=== PATIENT | female | born 1965 | race Caucasian/White ===

== ENCOUNTER 2020-10-25 09:51 | Outpatient (CLI) | payer OTHER, SELFPAY ==
--- NOTE | 2020-10-25 10:08 | XR_ITS ---
WS: [id number] CERVICAL SPINE TECHNIQUE: 3 views of the cervical spine CLINICAL INFORMATION: NECK PAIN COMPARISON: None. FINDINGS: Mild cervical curve convex left. Moderate spondylitic changes. Disc space narrowing throughout the ce rvical spine worse at C3-C4 C4-C5 and C5-C6. Normal prevertebral soft tissues. Normal C1-2 articulati on. Slight retrolisthesis C3 on C4 and C4 on C5. Normal dens. TECHNIQUE: 3 views of the lumbar spine CLINICAL INFORMATION: Back pain COMPARISON: None. FINDINGS: Osteopenia. Minimal lumbar curve. Grade 1 anterolisthesis L4 on L5 measuring 3 mm. Grade 1 anterolist hesis L5 on S1 measuring 2 mm. Moderate facet arthropathy L4-L5 and L5-S1. Disc space narrowing worse L4-L5 and L5-S1. Aortic calcification. No acute compression fractures. XR/XR lumbar spine 2-3V* [id number] IMPRESSION: 1. Moderate spondylitic changes cervical spine. 2. Disc space narrowing worse at C3-C4 C4-C5 and C5-C6. 3. Slight retrolisthesis C3 on C4 and C4 on C5. LUMBAR SPINE: IMPRESSION: 1. Grade 1 anterolisthesis L4 on L5 measuring 3 mm. Grade 1 anterolisthesis L5 on S1 measuring 2 mm. 2. Disc space narrowing worse L4-L5 and L5-S1. Moderate facet arthropathy L4-L5 and L5-S1.
--- NOTE | 2020-10-25 10:08 | XR_ITS ---
WS: [id number] CERVICAL SPINE TECHNIQUE: 3 views of the cervical spine CLINICAL INFORMATION: NECK PAIN COMPARISON: None. FINDINGS: Mild cervical curve convex left. Moderate spondylitic changes. Disc space narrowing throughout the ce rvical spine worse at C3-C4 C4-C5 and C5-C6. Normal prevertebral soft tissues. Normal C1-2 articulati on. Slight retrolisthesis C3 on C4 and C4 on C5. Normal dens. TECHNIQUE: 3 views of the lumbar spine CLINICAL INFORMATION: Back pain COMPARISON: None. FINDINGS: Osteopenia. Minimal lumbar curve. Grade 1 anterolisthesis L4 on L5 measuring 3 mm. Grade 1 anterolist hesis L5 on S1 measuring 2 mm. Moderate facet arthropathy L4-L5 and L5-S1. Disc space narrowing worse L4-L5 and L5-S1. Aortic calcification. No acute compression fractures. XR/XR cervical spine 3V* [id number] IMPRESSION: 1. Moderate spondylitic changes cervical spine. 2. Disc space narrowing worse at C3-C4 C4-C5 and C5-C6. 3. Slight retrolisthesis C3 on C4 and C4 on C5. LUMBAR SPINE: IMPRESSION: 1. Grade 1 anterolisthesis L4 on L5 measuring 3 mm. Grade 1 anterolisthesis L5 on S1 measuring 2 mm. 2. Disc space narrowing worse L4-L5 and L5-S1. Moderate facet arthropathy L4-L5 and L5-S1.
== END 2020-10-25 09:52 | disposition home or self-care (01) ==
LOC: RAD 09:54
PROVIDERS: PCP General Practice; Visit Provider Dermatology
DX: M54.2 Cervicalgia (principal); M54.5 Low back pain; M47.816 Spondylosis without myelopathy or radiculopathy, lumbar region; M47.817 Spondylosis without myelopathy or radiculopathy, lumbosacral region
CPT/HCPCS: 72040; 72100

== ENCOUNTER → 2021-05-09 11:10 | Outpatient (BNVA) | payer MEDICAID, SELFPAY | PROVIDERS: PCP General Practice; Visit Provider Nurse Practitioner | DX: E11.65 Type 2 diabetes mellitus with hyperglycemia (principal); Z79.4 Long term (current) use of insulin | CPT/HCPCS: 80053; 80061; 83036; 84443; 85025 ==

== ENCOUNTER → 2021-08-07 11:20 | Outpatient (BNVA) | payer MEDICAID, SELFPAY | PROVIDERS: PCP General Practice; Visit Provider Nurse Practitioner | DX: E11.65 Type 2 diabetes mellitus with hyperglycemia (principal); Z79.4 Long term (current) use of insulin; F41.9 Anxiety disorder, unspecified; F32.A Depression, unspecified; I10 Essential (primary) hypertension | CPT/HCPCS: 80053; 80061; 81000; 83036 ==

== ENCOUNTER 2021-10-13 19:47 | Emergency (ER) | payer MEDICAID, SELFPAY ==
[2021-10-13 20:28] VITALS: BP 182/97; PULSE 95; RESP 18; TEMP 37.3; O2SAT 97; BMI 29.2
--- NOTE | 2021-10-13 22:04 | ECG_ITS ---
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 Measurements Intervals [place] Rate: 87 P: 28 AK: 142 QRS: 3 QRSD: 129 T: 35 QT: 412 QTc: 498 Interpretive Statements SINUS RHYTHM RIGHT BUNDLE BRANCH BLOCK [120+ ms QRS DURATION, UPRIGHT V1, 40+ ms S IN I/aVL/V4/V5/V6] MODERATE VOLTAGE CRITERIA FOR LVH, CONSIDER NORMAL VARIANT [MEETS CRITERIA IN ONE OF: R(aVL), S(V1), R(V5), R(V5/V6)+S(V1)] INTERPRETATION BASED ON A DEFAULT AGE OF 40 YEARS Compared to ECG 02/09/2019 08:36:44 Short AK interval no longer present Electronically Signed On 10-14-2021 22:01:15 CDT by Alea Verduzco M.D. [id number]
[2021-10-13 22:23] VITALS: BP 153/89; PULSE 85; RESP 23; TEMP 37.5; O2SAT 90
--- NOTE | 2021-10-13 22:24 | XRR_ITS ---
PROCEDURE INFORMATION: Exam: XR Chest Exam date and time: 10/13/2021 10:35 PM Age: 56 years old Clinical indication: Patient HX: C/O HTN and MURRAY; Additional info: Fever TECHNIQUE: Imaging protocol: XR of the chest. Views: 1 view. COMPARISON: CR Chest 2 views* [id number] 02/09/2019 8:54 AM FINDINGS: Lungs: The lung bases are suboptimally assessed due to technique however the upper lungs are clear of focal consolidation. Calcified granuloma left lung base. Pleural spaces: Unremarkable. No pleural effusion. No pneumothorax. Heart/Mediastinum: Cardiac silhouette appears somewhat magnified by technique but is probably normal in size. No obvious vascular congestion. Bones/joints: No acute osseous findings. Other findings: Two frontal views submitted. XR/XR chest 1V portable [id number] IMPRESSION: No obvious acute consolidation. Suboptimal lung base assessment. Followup including lateral view may be obtained if clinically indicated.
--- NOTE | 2021-10-13 22:24 | CTR_ITS ---
PROCEDURE INFORMATION: Exam: CT Head Without Contrast Exam date and time: 10/13/2021 10:43 PM Age: 56 years old Clinical indication: Pain; Headache not specified; Patient HX: C/O HTN and MURRAY; Additional info: New headacche TECHNIQUE: Imaging protocol: Computed tomography of the head without contrast. Radiation optimization: All CT scans at this facility use at least one of these dose optimization techniques: automated exposure control; mA and/or kV adjustment per patient size (includes targeted exams where dose is matched to clinical indication); or iterative reconstruction. COMPARISON: CT head wo con* [id number] 02/09/2019 8:46 AM RADIATION DOSE METRICS: Total DLP (mGy-cm): 786.95 FINDINGS: Brain: Moderate-severe diffuse hypodense changes are noted in the bilateral periventricular regions, which may be related to chronic microvascular ischemic disease or other nonspecific white matter/demyelinating disease. There is mild brain parenchymal atrophy. No acute intracranial hemorrhage, mass effect or midline shift. Cerebral ventricles: No pathologic ventricular dilatation. Paranasal sinuses: Visualized sinuses are unremarkable. No fluid levels. Mastoid air cells: Visualized mastoid air cells are well aerated. Bones/joints: Unremarkable. No acute fracture. Soft tissues: Unremarkable. CT/CT head wo con* [id number] IMPRESSION: 1. Significant diffuse chronic white matter abnormalities which appears stable. Clinical correlation is needed. Neurologic consultation/MRI correlation should be considered. 2. No acute intracranial findings otherwise..
--- NOTE | 2021-10-13 22:26 | W.ED.GENADLT ---
Documented by User: Chun Scherer DO 10/13/21 23:11 HPI - General Adult General: Chief complaint: Headache Stated complaint: high blood pressure head ache Time Seen by Provider: 10/13/21 22:03 Source: patient Mode of arrival: ambulatory Limitations: no limitations History of Present Illness: This patient presents to our emergency department because she is concerned about she might have elevation in her blood pressure and associated headache. She states she is also had generalized body aches malaise and decreased appetite and subjective fevers. She was initially concerned because she thought that her blood pressure elevation may be the culprit however he has any other associated symptoms as noted. She states she is not knowingly been exposed to any infectious disease. She takes her medications for blood pressure and glucose control. She states in the past she has had headache when her either her blood sugar or her blood pressure were not well controlled. She does not know what her most recent blood sugars have been. She is unimmunized against COVID-19 or influenza. She does smoke tobacco. She has had some mild nonproductive cough. Decreased appetite but no nausea vomiting or diarrhea or abdominal pain. No neck pain, photophobia, sore throat etc. Severity: moderate Associated symptoms: Reports decreased appetite, fevers/chills, headache(s), malaise and nausea; Deny chest pain, dyspnea, rash, palpitations, short of breath, syncope or vomiting Treatments prior to arrival: none Review of Systems Const: Reports: fever(s), body aches, change in appetite and malaise Eyes: Denies: change in vision or blurry vision ENMT: Denies: throat pain, odynophagia or nasal congestion Card: Denies: chest pain, palpitations, edema or syncope Resp: Reports: non-productive cough; Denies: dyspnea, productive cough, wheezing or stridor GI: Reports: nausea; Denies: abdominal pain or vomiting : Denies: flank pain, difficulty voiding, dysuria or urinary frequency Musc: Denies: neck pain, back pain, extremity pain or extremity swelling Skin/Breast: Denies: rash or pruritus Neuro: Reports: headache(s); Denies: numbness in extremities, weakness in extremities, dizziness, Slurred speech present or seizure-like activity Psych: Denies: anxiety or depression Endo: Denies: polyuria or polydipsia Tray/Lymph: Denies: easy bruising All/Imm: Denies: urticaria PFSH ED PFSH: Medical History Anxiety and depression Diabetes mellitus with hyperglycemia, with long-term current use of insulin Essential hypertension Moderate cigarette smoker Surgical History History of left breast biopsy Benign 1995 History of tubal ligation History of umbilical hernia Family History Grandmother Dementia Diabetes Mother Hypertension Father Chronic kidney disease (CKD) Denies family history of Lung disease Cancer Stroke Social History Smoking and tobacco status: current every day smoker Second hand smoke exposure: No Smoking risk assessment/counseling performed?: Yes Alcohol intake: never Desire information about alcohol rehabilitation?: No Counseling given: No Desire information about substance/drug rehabilitation?: No Counseling given: No Adopted: No Caregiver/support person: No Lives independently: Yes Household members: none Housing: Manufactured/Mobile home Marital status: Single Number of children: 2 service: No Current occupational status: unemployed Pets and animals: Yes Pets & animals: dog(s) History of recent travel: No Current gender identity: Female Physical Exam Narrative: EXAM NARRATIVE: Alert makes good eye contact. She is rather quiet but cooperative. Const: COMMON NORMALS: no acute distress, average body habitus, patient oriented x3 and alert GENERAL APPEARANCE: comfortable and anxious NUTRITIONAL APPEARANCE: obese HENMT: COMMON NORMALS: normocephalic, atraumatic, Normal nasal mucous membranes and turbinates present, moist oral mucous membranes and oropharynx normal HEAD & SCALP: normocephalic and atraumatic FACE & SINUS: sinuses nontender NOSE: Normal nasal mucous membranes and turbinates present Eye: COMMON NORMALS: Equal, round and reactive pupils present, EOMs intact bilaterally and conjunctivae normal CONJUNCTIVA: Yes conjunctivae normal PUPIL: Yes Equal, round and reactive pupils present Neck/C-Spine: COMMON NORMALS: full ROM, supple, no meningeal signs and No carotid bruits Chest: COMMONS NORMALS: normal inspection of the chest and normal palpation of entire chest wall Resp: COMMON NORMALS: normal respiratory effort, No retractions, No use of accessory muscles and clear to auscultation bilaterally AUSCULTATION: clear to auscultation bilaterally GI: COMMON NORMALS: Normal to inspection, nondistended, normoactive bowel sounds present, Soft to palpation, non-tender and no masses PALPATION: Yes Soft to palpation : COMMON NORMALS: Yes no CVA tenderness BLADDER/KIDNEY EXAM: Yes no CVA tenderness Back/Pelvis: COMMON NORMALS: no CVA tenderness, thoracic and lumbar spine normal to inspection, no thoracic nor lumbar tenderness and straight leg raise negative bilaterally Extremity: COMMON NORMALS: normal to inspection, full ROM, capillary refill normal and no calf tenderness Neuro: COMMON NORMALS: patient oriented x3, moves all extremities, no focal motor deficits and no sensory deficits noted SENSORIUM/ORIENTATION: Yes alert MENINGEAL SIGNS: Yes no meningeal signs CRANIAL NERVES: Yes CN normal except as noted MOTOR EXAM: Pronator motor function not present Psych: COMMON NORMALS: mental status grossly normal, Normal thought process present and cooperative THOUGHT PROCESS: Normal thought process present Skin: COMMON NORMALS: no rashes or lesions noted, no wounds and turgor normal GENERAL SKIN EXAM: no rashes or lesions noted and turgor normal Course Reevaluation(s): Reevaluation #1: Patient's clinical presentation does not suggest hypertensive urgency, worrisome secondary headache etc. at this time. Her clinical presentation suggest at this point that she may be suffering from either a bacterial or viral infection and that work-up is ongoing. This case will be turned over to Dr. Sparks for disposition. Time: 23:01 Vital Signs: Vital signs: Vital Signs Temperature 99.8 F H 10/14/21 00:39 Pulse Rate 85 10/14/21 00:39 Respiratory Rate 23 H 10/14/21 00:39 Blood Pressure 157/76 10/14/21 00:39 Pulse Oximetry 92 10/14/21 00:39 [facility] - General Adult Medical Decision Making This patient presented to the emergency department initially with symptoms of headache body aches my history of hypertension and diabetes. Her concern initially that her headache may have represented a abnormal blood sugar or elevated blood pressure. Initial impression to suggest a possible infectious etiology to her presentation. Work-up is still ongoing and Dr. Sparks will be making final disposition on this patient. Lab Data : 10/13/21 22:40 10/13/21 22:40 Radiology Impressions Chest X-Ray 10/13/21 22:24 IMPRESSION: No obvious acute consolidation. Suboptimal lung base assessment. Followup including lateral view may be obtained if clinically indicated. Head CT 10/13/21 22:24 IMPRESSION: 1. Significant diffuse chronic white matter abnormalities which appears stable. Clinical correlation is needed. Neurologic consultation/MRI correlation should be considered. 2. No acute intracranial findings otherwise.. Laboratory Results WBC 7.0 10^3/uL (4.0-10.0) 10/13/21 22:40 RBC 4.77 10^6/uL (4.1-5.3) 10/13/21 22:40 Hgb 14.3 g/dL (11.5-15.3) 10/13/21 22:40 Hct 43.2 % (37.0-47.0) 10/13/21 22:40 MCV 90.6 fl (81-99) 10/13/21 22:40 MCH 30.0 pg (28.0-34.0) 10/13/21 22:40 MCHC 33.1 g/dL (30.0-36.0) 10/13/21 22:40 RDW 12.9 % (12.1-15.1) 10/13/21 22:40 Plt Count 225 10^3/cmm (130-400) 10/13/21 22:40 MPV 10.5 fL (7.4-10.4) H 10/13/21 22:40 Neut % (Auto) 76.6 % 10/13/21 22:40 Lymph % (Auto) 10.1 % 10/13/21 22:40 [place] % (Auto) 12.5 % 10/13/21 22:40 Eos % (Auto) 0.1 % 10/13/21 22:40 Baso % (Auto) 0.3 % 10/13/21 22:40 Neut # (Auto) 5.39 10^3/uL (1.8-7.7) 10/13/21 22:40 Lymph # (Auto) 0.7 10^3/uL (0.8-4.8) L 10/13/21 22:40 [place] # (Auto) 0.9 10^3/uL (0.2-0.9) 10/13/21 22:40 Eos # (Auto) 0.0 10^3/uL (0.0-0.8) 10/13/21 22:40 Baso # (Auto) 0.0 10^3/uL (0.0-0.1) 10/13/21 22:40 Nucleated RBC % (auto) 0 % 10/13/21 22:40 Nucleated RBCs # 0.0 /100WBC 10/13/21 22:40 Sodium 132 mmol/L (136-145) L 10/13/21 22:40 Potassium 3.8 mmol/L (3.5-5.1) 10/13/21 22:40 Chloride 98 mmol/L (98-107) 10/13/21 22:40 Carbon Dioxide 23 mmol/L (22-29) 10/13/21 22:40 Anion Gap 14.8 (5-19) 10/13/21 22:40 BUN 12 mg/dL (6-20) 10/13/21 22:40 Creatinine 0.5 mg/dL (0.5-0.9) 10/13/21 22:40 GFR Calculation 127.2 mL/min (90-130) 10/13/21 22:40 Glucose 165 mg/dL (65-115) H 10/13/21 22:40 Calculated Osmolality 277 mOsm/kg (285-295) L 10/13/21 22:40 Calcium 8.8 mg/dL (8.5-10.5) 10/13/21 22:40 Total Bilirubin 0.3 mg/dL (0.15-1.2) 10/13/21 22:40 AST 11 U/L (0-32) 10/13/21 22:40 ALT 12 U/L (0-33) 10/13/21 22:40 Alkaline Phosphatase 94 IU/L (35-105) 10/13/21 22:40 Total Protein 6.2 g/dL (6.6-8.7) L 10/13/21 22:40 Albumin 3.8 g/dL (3.5-5.2) 10/13/21 22:40 Globulin 2.4 g/dL (1.3-4.6) 10/13/21 22:40 Urine Color Yellow (Yellow) 10/13/21 22:50 Urine Appearance Clear (CLEAR) 10/13/21 22:50 Urine pH 5 (5-7) 10/13/21 22:50 Ur Specific [place] 1.030 (1.005-1.030) 10/13/21 22:50 Urine Protein Trace (Negative) 10/13/21 22:50 Urine Glucose (UA) Norm (Normal) 10/13/21 22:50 Urine Ketones 1+ (Negative) H 10/13/21 22:50 Urine Blood Neg (Negative) 10/13/21 22:50 Urine Nitrate Positive (Negative) H 10/13/21 22:50 Urine Bilirubin Neg (Negative) 10/13/21 22:50 Urine Urobilinogen Norm mg/dL (Negative) 10/13/21 22:50 Ur Leukocyte Esterase Negative (Negative) 10/13/21 22:50 Urine RBC 0-4 /hpf (0-2) H 10/13/21 22:50 Urine WBC 0-4 /hpf (0-5) H 10/13/21 22:50 Ur Squamous Epith Cells 0-4 /hpf (0-5) H 10/13/21 22:50 Amorphous Sediment Not Reportable 10/13/21 22:50 Urine Bacteria 4+ /hpf (NONE) H 10/13/21 22:50 Influenza Type A Ag Negative (Negative) 10/13/21 22:50 Influenza Type B Ag Negative (Negative) 10/13/21 22:50 SARS-CoV-2 Ag (Rapid) Negative (Negative) 10/13/21 22:50 Discharge Plan Discharge Patient Disposition: Home Clinical Impression: Headache, Acute viral syndrome Condition: Stable Prescriptions: No Action buspirone 10 mg tablet 10 mg PO BID Qty: 60 2RF citalopram 40 mg tablet 40 mg PO DAILY Qty: 30 2RF glipizide 10 mg tablet extended release 24hr 10 mg PO DAILY Qty: 30 2RF Lantus Solostar U-100 Insulin 100 unit/mL (3 mL) insulin pen 15 unit SUBCUT QAM Qty: 15 2RF lisinopril 20 mg tablet 20 mg PO DAILY Qty: 30 2RF metformin 1,000 mg tablet 1,000 mg PO BID Qty: 60 2RF Rx Instructions: 1 tab PO BID with meal Victoza 3-Lj 0.6 mg/0.1 mL (18 mg/3 mL) pen injector See Rx Instructions SUBCUT .COMPLEX Qty: 9 2RF Rx Instructions: inject 0.6mg subcutaneously once daily x 7 days; then 1.2mg daily, not to exceed 1.8mg/day SUBCUT (DME) blood-glucose meter [OneTouch Ultra2 Meter] Kit See Rx Instructions .Route Qty: 1 0RF Rx Instructions: As directed (DME) OneTouch Ultra Test Strip See Rx Instructions .Route Qty: 100 5RF Rx Instructions: 3 times day as needed (DME) lancets [OneTouch Delica Plus Lancet] 33 gauge misc See Rx Instructions .Route Qty: 100 5RF Rx Instructions: 3 times day as needed (DME) pen needle, diabetic 33 gauge x 5/32 needle See Rx Instructions .ROUTE .MEDSUPPLY Qty: 100 5RF Rx Instructions: 2 times day pbzxsnvb-vgixyzorp-US 3.5-10,000-1 mg/mL-unit/mL-% drops,suspension 4 drp otic (ear) TID 10 Days Qty: 10 0RF Discharge Orders: Discharge ED (Routine); Ordered 10/14/21 Ordered By: Gianni Sparks Referrals: Yassine Lewis MD [Primary Care Provider] - 1-3 days Patient Instructions: Acute Headache (ED), Viral Syndrome (ED) Activity Restrictions/Additional Instructions: Your work-up did not reveal a cause of your elevated temperature. Your influenza and COVID swabs were negative. This is likely a different viral syndrome causing your elevated temperature, headache, and body aches. Your other laboratory testing was negative. CT of your head, and chest x-ray did not reveal any acute findings. Stay hydrated. Watch your sugars and blood pressure closely. Return for worsening headache, mental status changes, vomiting liquids or medications, inability to control temperature, neck stiffness, any other concerning symptoms. Coding Level of Care Code ED Senior Technical Specialist for Chg Fwd Exam Comprehensive Documented by User: Gianni Sparks DO 10/14/21 00:53 HPI - General Adult General: Chief complaint: Headache Stated complaint: high blood pressure head ache Time Seen by Provider: 10/13/21 22:03 PFSH ED PFSH: Medical History Anxiety and depression Diabetes mellitus with hyperglycemia, with long-term current use of insulin Essential hypertension Moderate cigarette smoker Surgical History History of left breast biopsy Benign 1994 History of tubal ligation History of umbilical hernia Family History Grandmother Dementia Diabetes Mother Hypertension Father Chronic kidney disease (CKD) Denies family history of Lung disease Cancer Stroke Social History Smoking and tobacco status: current every day smoker Second hand smoke exposure: No Smoking risk assessment/counseling performed?: Yes Alcohol intake: never Desire information about alcohol rehabilitation?: No Counseling given: No Desire information about substance/drug rehabilitation?: No Counseling given: No Adopted: No Caregiver/support person: No Lives independently: Yes Household members: none Housing: Manufactured/Mobile home Marital status: Single Number of children: 2 service: No Current occupational status: unemployed Pets and animals: Yes Pets & animals: dog(s) History of recent travel: No Current gender identity: Female Course Vital Signs: Vital signs: Vital Signs Temperature 99.8 F H 10/14/21 00:39 Pulse Rate 85 10/14/21 00:39 Respiratory Rate 23 H 10/14/21 00:39 Blood Pressure 157/76 10/14/21 00:39 Pulse Oximetry 92 10/14/21 00:39 MDM - General Adult Medical Decision Making This patient presented to the emergency department initially with symptoms of headache body aches my history of hypertension and diabetes. Her concern initially that her headache may have represented a abnormal blood sugar or elevated blood pressure. Initial impression to suggest a possible infectious etiology to her presentation. Work-up is still ongoing and Dr. Sparks will be making final disposition on this patient. 56-year-old female with headache and body aches. She has a mild elevation in temperature here. She is diabetic. Last blood pressure was 157/76. Her CBC is normal. Her BMP is essentially normal, save a glucose of 165. She has no new meningeal signs such as nuchal rigidity or stiffness etc. CT of her head shows some white matter changes that are chronic and stable, and no acute abnormality. Chest x-ray is essentially negative. Rapid swabs for flu and COVID are negative these are likely aches related and generalized viral syndrome. She will be allowed discharge with symptomatic management. Lab Data : 10/13/21 22:40 10/13/21 22:40 Radiology Impressions Chest X-Ray 10/13/21: IMPRESSION: No obvious acute consolidation. Suboptimal lung base assessment. Followup including lateral view may be obtained if clinically indicated. Head CT 10/13/21 22:24 IMPRESSION: 1. Significant diffuse chronic white matter abnormalities which appears stable. Clinical correlation is needed. Neurologic consultation/MRI correlation should be considered. 2. No acute intracranial findings otherwise.. Laboratory Results WBC 7.0 10^3/uL (4.0-10.0) 10/13/21 22:40 RBC 4.77 10^6/uL (4.1-5.3) 10/13/21 22:40 Hgb 14.3 g/dL (11.5-15.3) 10/13/21 22:40 Hct 43.2 % (37.0-47.0) 10/13/21 22:40 MCV 90.6 fl (81-99) 10/13/21 22:40 MCH 30.0 pg (28.0-34.0) 10/13/21 22:40 MCHC 33.1 g/dL (30.0-36.0) 10/13/21 22:40 RDW 12.9 % (12.1-15.1) 10/13/21 22:40 Plt Count 225 10^3/cmm (130-400) 10/13/21 22:40 MPV 10.5 fL (7.4-10.4) H 10/13/21 22:40 Neut % (Auto) 76.6 % 10/13/21 22:40 Lymph % (Auto) 10.1 % 10/13/21 22:40 [place] % (Auto) 12.5 % 10/13/21 22:40 Eos % (Auto) 0.1 % 10/13/21 22:40 Baso % (Auto) 0.3 % 10/13/21 22:40 Neut # (Auto) 5.39 10^3/uL (1.8-7.7) 10/13/21 22:40 Lymph # (Auto) 0.7 10^3/uL (0.8-4.8) L 10/13/21 22:40 [place] # (Auto) 0.9 10^3/uL (0.2-0.9) 10/13/21 22:40 Eos # (Auto) 0.0 10^3/uL (0.0-0.8) 10/13/21 22:40 Baso # (Auto) 0.0 10^3/uL (0.0-0.1) 10/13/21 22:40 Nucleated RBC % (auto) 0 % 10/13/21 22:40 Nucleated RBCs # 0.0 /100WBC 10/13/21 22:40 Sodium 132 mmol/L (136-145) L 10/13/21 22:40 Potassium 3.8 mmol/L (3.5-5.1) 10/13/21 22:40 Chloride 98 mmol/L (98-107) 10/13/21 22:40 Carbon Dioxide 23 mmol/L (22-29) 10/13/21 22:40 Anion Gap 14.8 (5-19) 10/13/21 22:40 BUN 12 mg/dL (6-20) 10/13/21 22:40 Creatinine 0.5 mg/dL (0.5-0.9) 10/13/21 22:40 GFR Calculation 127.2 mL/min (90-130) 10/13/21 22:40 Glucose 165 mg/dL (65-115) H 10/13/21 22:40 Calculated Osmolality 277 mOsm/kg (285-295) L 10/13/21 22:40 Calcium 8.8 mg/dL (8.5-10.5) 10/13/21 22:40 Total Bilirubin 0.3 mg/dL (0.15-1.2) 10/13/21 22:40 AST 11 U/L (0-32) 10/13/21 22:40 ALT 12 U/L (0-33) 10/13/21 22:40 Alkaline Phosphatase 94 IU/L (35-105) 10/13/21 22:40 Total Protein 6.2 g/dL (6.6-8.7) L 10/13/21 22:40 Albumin 3.8 g/dL (3.5-5.2) 10/13/21 22:40 Globulin 2.4 g/dL (1.3-4.6) 10/13/21 22:40 Urine Color Yellow (Yellow) 10/13/21 22:50 Urine Appearance Clear (CLEAR) 10/13/21 22:50 Urine pH 5 (5-7) 10/13/21 22:50 Ur Specific [place] 1.030 (1.005-1.030) 10/13/21 22:50 Urine Protein Trace (Negative) 10/13/21 22:50 Urine Glucose (UA) Norm (Normal) 10/13/21 22:50 Urine Ketones 1+ (Negative) H 10/13/21 22:50 Urine Blood Neg (Negative) 10/13/21 22:50 Urine Nitrate Positive (Negative) H 10/13/21 22:50 Urine Bilirubin Neg (Negative) 10/13/21 22:50 Urine Urobilinogen Norm mg/dL (Negative) 10/13/21 22:50 Ur Leukocyte Esterase Negative (Negative) 10/13/21 22:50 Urine RBC 0-4 /hpf (0-2) H 10/13/21 22:50 Urine WBC 0-4 /hpf (0-5) H 10/13/21 22:50 Ur Squamous Epith Cells 0-4 /hpf (0-5) H 10/13/21 22:50 Amorphous Sediment Not Reportable 10/13/21 22:50 Urine Bacteria 4+ /hpf (NONE) H 10/13/21 22:50 Influenza Type A Ag Negative (Negative) 10/13/21 22:50 Influenza Type B Ag Negative (Negative) 10/13/21 22:50 SARS-CoV-2 Ag (Rapid) Negative (Negative) 10/13/21 22:50 Discharge Plan Discharge Patient Disposition: Home Clinical Impression: Headache, Acute viral syndrome Condition: Stable Prescriptions: No Action buspirone 10 mg tablet 10 mg PO BID Qty: 60 2RF citalopram 40 mg tablet 40 mg PO DAILY Qty: 30 2RF glipizide 10 mg tablet extended release 24hr 10 mg PO DAILY Qty: 30 2RF Lantus Solostar U-100 Insulin 100 unit/mL (3 mL) insulin pen 15 unit SUBCUT QAM Qty: 15 2RF lisinopril 20 mg tablet 20 mg PO DAILY Qty: 30 2RF metformin 1,000 mg tablet 1,000 mg PO BID Qty: 60 2RF Rx Instructions: 1 tab PO BID with meal Victoza 3-Lj 0.6 mg/0.1 mL (18 mg/3 mL) pen injector See Rx Instructions SUBCUT .COMPLEX Qty: 9 2RF Rx Instructions: inject 0.6mg subcutaneously once daily x 7 days; then 1.2mg daily, not to exceed 1.8mg/day SUBCUT (DME) blood-glucose meter [OneTouch Ultra2 Meter] Kit See Rx Instructions .Route Qty: 1 0RF Rx Instructions: As directed (DME) OneTouch Ultra Test Strip See Rx Instructions .Route Qty: 100 5RF Rx Instructions: 3 times day as needed (DME) lancets [OneTouch Delica Plus Lancet] 33 gauge misc See Rx Instructions .Route Qty: 100 5RF Rx Instructions: 3 times day as needed (DME) pen needle, diabetic 33 gauge x 5/32 needle See Rx Instructions .ROUTE .MEDSUPPLY Qty: 100 5RF Rx Instructions: 2 times day lavhele[place]-gtburzusy-CR 3.5-10,000-1 mg/mL-unit/mL-% drops,suspension 4 drp otic (ear) TID 10 Days Qty: 10 0RF Discharge Orders: Discharge ED (Routine); Ordered 10/14/21 Ordered By: Gianni Sparks Referrals: Yassine Lewis MD [Primary Care Provider] - 1-3 days Patient Instructions: Acute Headache (ED), Viral Syndrome (ED) Activity Restrictions/Additional Instructions: Your work-up did not reveal a cause of your elevated temperature. Your influenza and COVID swabs were negative. This is likely a different viral syndrome causing your elevated temperature, headache, and body aches. Your other laboratory testing was negative. CT of your head, and chest x-ray did not reveal any acute findings. Stay hydrated. Watch your sugars and blood pressure closely. Return for worsening headache, mental status changes, vomiting liquids or medications, inability to control temperature, neck stiffness, any other concerning symptoms. Coding Level of Care Code ED Senior Technical Specialist for Tr [employer] Exam Comprehensive
[2021-10-13 22:45] LABS: Basophils % 0.3 %; Eosinophils % 0.1 %; Hematocrit 43.2 % (37.0-47.0); Hemoglobin 14.3 g/dL (11.5-15.3); Lymphocytes # 0.7 10^3/uL (0.8-4.8); Lymphocytes % 10.1 %; Mean Corpuscular HGB Conc 33.1 g/dL (30.0-36.0); Mean Corpuscular Volume 90.6 fl (81-99); Mean Platelet Volume 10.5 fL (7.4-10.4); Monocytes # 0.9 10^3/uL (0.2-0.9); Monocytes % 12.5 %; Neutrophils # 5.39 10^3/uL (1.8-7.7); Neutrophils % 76.6 %; Nucleated Red Blood Cells % 0 %; Platelet Count 225 10^3/cmm (130-400); Red Blood Count 4.77 10^6/uL (4.1-5.3); Red Cell Distribution Width 12.9 % (12.1-15.1)
[2021-10-13] MEDS: sodium chloride 0.9% 1,000 ML 999 ML IV (23:02)
[2021-10-13 23:04] LABS: Alanine Aminotransferase 12 U/L (0-33); Albumin Level 3.8 g/dL (3.5-5.2); Alkaline Phosphatase 94 IU/L (35-105); Anion Gap 14.8 (5-19); Aspartate Amino Transferase 11 U/L (0-32); Blood Urea Nitrogen 12 mg/dL (6-20); Calcium 8.8 mg/dL (8.5-10.5); Carbon Dioxide 23 mmol/L (22-29); Chloride 98 mmol/L (98-107); Globulin 2.4 g/dL (1.3-4.6); Glomerular Filtration Rate 127.2 mL/min (90-130); Glucose 165 mg/dL (65-115); Osmolality Calculated 277 mOsm/kg (285-295); Potassium 3.8 mmol/L (3.5-5.1); Sodium 132 mmol/L (136-145); Total Bilirubin 0.3 mg/dL (0.15-1.2); Total Protein 6.2 g/dL (6.6-8.7)
[2021-10-13 23:31] LABS: SARS Covid-2 Antigen Negative (Negative)
[2021-10-13 23:32] LABS: Influenza A by IFA Negative (Negative); Influenza B by IFA Negative (Negative)
[2021-10-13 23:36] VITALS: BP 153/89; PULSE 85; RESP 20; O2SAT 95
[2021-10-13 23:48] LABS: Protein Urine Trace (Negative); Urine Appearance Clear (CLEAR); Urine Color Yellow (Yellow); pH Urine 5 (5-7)
[2021-10-13 23:49] LABS: Add Urine Microscopic? YES; Bilirubin Urine Neg (Negative); Blood Urine Neg (Negative); Glucose Urine UA Norm (Normal); Ketones Urine 1+ (Negative); Leukocyte Esterase Urine Negative (Negative); Nitrate Urine Positive (Negative); Urobilinogen Urine Norm (Negative)
[2021-10-13 23:52] LABS: Add Urine Culture? Yes; Bacteria Urine 4+ /hpf; RBC Urine 0-4 /hpf (0-2); Squamous Epithelial Cell Urine 0-4 /hpf (0-5); WBC Urine 0-4 /hpf (0-5)
[2021-10-13 23:56] VITALS: BP 174/88; RESP 22; TEMP 537.1; TEMP 998.8; O2SAT 91
[2021-10-14 00:04] VITALS: BP 157/76; PULSE 85; RESP 23; TEMP 37.7; O2SAT 92
[2021-10-14 00:39] VITALS: BP 157/76; PULSE 85; RESP 23; TEMP 37.7; O2SAT 92
== END 2021-10-14 00:41 | disposition home or self-care (01) ==
PROVIDERS: Emergency Medicine; Emergency Provider Emergency Medicine; PCP General Practice
DX: R51.9 Headache, unspecified (principal); B34.9 Viral infection, unspecified; I10 Essential (primary) hypertension; E11.9 Type 2 diabetes mellitus without complications; F41.9 Anxiety disorder, unspecified; F32.A Depression, unspecified; F17.200 Nicotine dependence, unspecified, uncomplicated; Z79.4 Long term (current) use of insulin
CPT/HCPCS: 70450; 71045; 80053; 81001; 85025; 87077; 87086; 87186; 87426; 87804; 93005; 96360; 99284; J7030

== ENCOUNTER → 2021-12-25 13:52 | Outpatient (BNVA) | payer MEDICAID, SELFPAY | PROVIDERS: PCP General Practice; Visit Provider Nurse Practitioner | DX: E11.65 Type 2 diabetes mellitus with hyperglycemia (principal); Z79.4 Long term (current) use of insulin; F41.9 Anxiety disorder, unspecified; F32.A Depression, unspecified; I10 Essential (primary) hypertension | CPT/HCPCS: 80053; 80061; 81000; 83036; 84443 ==

== ENCOUNTER → 2022-07-20 11:15 | Outpatient (BNVA) | payer MEDICAID, SELFPAY | PROVIDERS: PCP General Practice; Visit Provider Nurse Practitioner | DX: E11.65 Type 2 diabetes mellitus with hyperglycemia (principal); Z79.4 Long term (current) use of insulin | CPT/HCPCS: 80053; 80061; 82043; 83036; 84443 ==

== ENCOUNTER 2022-11-05 23:22 | Emergency (ER) | payer MEDICAID, SELFPAY ==
[2022-11-05 23:24] VITALS: BMI 30.2
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
--- NOTE | 2022-11-05 23:27 | ECG_ITS ---
[facility] Test Date: 2022-11-05 Pat Name: Emma Grant Department: Room: Gender: Female Agency Manager: : 1965 Requested By: Tristan Alfaro Order Number: [id number] Painting MD: Makeda Eli M.D. Measurements Intervals [place] Rate: 126 P: 0 MO: 0 QRS: 2 QRSD: 133 T: 5 QT: 357 QTc: 517 Interpretive Statements ATRIAL FIBRILLATION WITH RAPID VENTRICULAR RESPONSE RIGHT BUNDLE BRANCH BLOCK [120+ ms QRS DURATION, UPRIGHT V1, 40+ ms S IN I/aVL/V4/V5/V6] MINIMAL VOLTAGE CRITERIA FOR LVH, CONSIDER NORMAL VARIANT [MEETS CRITERIA IN ONE OF: R(aVL), S(V1), R(V5), R(V5/V6)+S(V1)] Compared to ECG 10/13/2021 22:19:34 Sinus rhythm no longer present Electronically Signed On 11-06-2022 8:22:01 CDT by Makeda Eli M.D. [id number]
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
[2022-11-05 23:28] VITALS: BP 168/99; PULSE 130; RESP 16; TEMP 37.1; O2SAT 95
--- NOTE | 2022-11-05 23:29 | PC.NURSE ---
provider made aware that patient was not placed in ccollar. provider declined need for ccollar placement at this time
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
[2022-11-05 23:39] LABS: Basophils # 0.1 10^3/uL (0.0-0.1); Basophils % 0.5 %; Eosinophils # 0.2 10^3/uL (0.0-0.8); Eosinophils % 1.8 %; Hematocrit 45.7 % (37.0-47.0); Hemoglobin 14.7 g/dL (11.5-15.3); Lymphocytes # 2.1 10^3/uL (0.8-4.8); Lymphocytes % 15.7 %; Mean Corpuscular HGB Conc 32.2 g/dL (30.0-36.0); Mean Corpuscular Hemoglobin 29.2 pg (28.0-34.0); Mean Corpuscular Volume 90.9 fl (81-99); Mean Platelet Volume 10.5 fL (7.4-10.4); Monocytes # 0.9 10^3/uL (0.2-0.9); Monocytes % 7.2 %; Nucleated Red Blood Cells % 0 %; Platelet Count 287 10^3/cmm (130-400); Red Blood Count 5.03 10^6/uL (4.1-5.3); Red Cell Distribution Width 13.4 % (12.1-15.1); White Blood Count 13.1 10^3/uL (4.0-10.0)
[2022-11-05] MEDS: iohexol 350 mg/mL 500 mL Btl (per mL) IV (23:51)
[2022-11-06] VITALS (7 sets, daily range): BP systolic 149–162; BP diastolic 85–107; PULSE 94–115; RESP 18–22; O2SAT 90–96
[2022-11-06 00:05] LABS: Troponin T (5th) Once 17 ng/L (0-10)
[2022-11-06 00:15] LABS: Alanine Aminotransferase 32 U/L (0-33); Albumin Level 4.2 g/dL (3.5-5.2); Alkaline Phosphatase 93 U/L (35-105); Anion Gap 16.9 (5-19); Aspartate Amino Transferase 30 U/L (0-32); Blood Urea Nitrogen 31 mg/dL (6-20); Calcium 9.3 mg/dL (8.5-10.5); Carbon Dioxide 21 mmol/L (22-29); Chloride 103 mmol/L (98-107); Globulin 2.1 g/dL (1.3-4.6); Glomerular Filtration Rate 85.9 mL/min (90-130); Glucose 168 mg/dL (65-115); Magnesium 1.6 mg/dL (1.7-2.3); Osmolality Calculated 294 mOsm/kg (285-295); Potassium 3.9 mmol/L (3.5-5.1); Sodium 137 mmol/L (136-145); Thyroid Stimulating Hormone 3.07 uIU/mL (0.27-4.20); Total Bilirubin 0.6 mg/dL (0.15-1.2); Total Protein 6.3 g/dL (6.6-8.7)
[2022-11-06] MEDS: morphine 4 mg/mL SDV 1 mL IVP ×2 (00:25→01:25)
[2022-11-06 00:30] LABS: Add Urine Culture? Yes; Add Urine Microscopic? YES; Bacteria Urine 3+ /hpf; Bilirubin Urine Neg (Negative); Blood Urine Neg (Negative); Glucose Urine UA Norm (Normal); Ketones Urine 1+ (Negative); Leukocyte Esterase Urine Trace (Negative); Mucus Urine TRACE /hpf; Nitrate Urine Positive (Negative); Protein Urine Trace (Negative); RBC Urine 0-4 /hpf (0-2); Squamous Epithelial Cell Urine 0-4 /hpf (0-5); Urine Appearance Clear (CLEAR); Urine Color Yellow (Yellow); Urobilinogen Urine Norm (Negative); pH Urine 5 (5-7)
[2022-11-06] MEDS: magnesium sulfate premix 2 GM/50 ML PIGGYBACK IV (00:33)
== END 2022-11-06 01:37 ==
PROVIDERS: Nurse Practitioner Family; Emergency Provider Emergency Medicine; PCP General Practice
DX: S26.91XA Contusion of heart, unspecified with or without hemopericardium, initial encounter (principal); V43.62XA Car passenger injured in collision with other type car in traffic accident, initial encounter; S22.43XA Multiple fractures of ribs, bilateral, initial encounter for closed fracture; I48.91 Unspecified atrial fibrillation
CPT/HCPCS: 70450; 71260; 72125; 74177; 80053; 81001; 83735; 84443; 84484; 85025; 87077; 87086; 87186; 93005; 96365; 96375; 96376; 99285; J2270; J3475; Q9967

== ENCOUNTER 2022-11-12 16:23 | Emergency (ER) | payer MEDICAID, SELFPAY ==
[2022-11-12 16:49] VITALS: BP 157/86; PULSE 66; RESP 14; TEMP 36.6; O2SAT 96; BMI 30.2
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
== END 2022-11-12 19:30 | disposition left against medical advice (07) ==
PROVIDERS: Emergency Provider Family Medicine; PCP General Practice
DX: Z53.21 Procedure and treatment not carried out due to patient leaving prior to being seen by health care provider (principal)
CPT/HCPCS: 93971; 99284

== ENCOUNTER 2023-01-18 08:30 | Outpatient (CLI) | payer MEDICAID, SELFPAY ==
[2023-01-18] MEDS: iohexol 350 mg/mL 500 mL Btl (per mL) IV (09:06)
--- NOTE | 2023-01-18 10:48 | CT_ITS ---
WS: [id number] CT ABDOMEN AND PELVIS WITH AND WITHOUT CONTRAST HISTORY: E27.8 - Other specified disorders of adrenal gland TECHNIQUE: Unenhanced 5 mm axial imaging first performed through the abdomen and pelvis. Post contras t imaging through the abdomen and pelvis. Oral contrast has not been provided. Sagittal and coronal reformats are submitted. All CT scans at [facility] use at least one of these dose optimizati on techniques: automated exposure control; mA and/or kV adjustment per patient size (includes targete d exams where dose is matched to clinical indication); or iterative reconstruction. CONTRAST: Omnipaque 350; 95 mL IV. DLP: 997.40 mGy COMPARISON: 11/05/2022, 07/18/2014 and 02/28/[address] protocol was not utilized for this exam. Left adrenal gland: There is a heterogeneous left adrenal gland measuring 3.4 x 3.8 cm. This left adr enal mass has been present since 2011 with slight increase in size. Hounsfield units are negative but there is also variable enhancement. On several of the images this mass is inseparable and possibly i nvades the posterior stomach. Mass has slowly increased in size since 2011. Normal right adrenal gland. Lung bases are clear. Normal size heart. Negative liver and spleen. Negative gallbladder. Normal panc reas. Cortical hypodensities in each kidney. These are too small to characterize. Majority of these a re stable. No solid mass. No adenopathy or ascites. No GI tract obstruction. Diffuse diverticular disease throughout the colon. Normal appendix. Increase in the lumbar lordosis. L4 anterolisthesis by 5 mm. IMPRESSION: 1. Indeterminate left adrenal mass. Well-circumscribed mass in the left adrenal gland which has incre ased in size since 2011. This mass is inseparable from the posterior stomach. Mass now measures 3.4 x 3.8 cm. This study was not performed to evaluate adrenal washout values. Hounsfield units are low on the precontrast imaging but this is a heterogeneous tumor. Recommend further imaging to exclude ana maría ision tumor. Consider follow-up PET/CT imaging. 2. Diffuse diverticular disease. No acute diverticulitis.
== END 2023-01-18 08:31 | disposition home or self-care (01) ==
LOC: RAD 08:30
PROVIDERS: PCP General Practice; Visit Provider Nurse Practitioner
DX: E27.8 Other specified disorders of adrenal gland (principal); K57.30 Diverticulosis of large intestine without perforation or abscess without bleeding
CPT/HCPCS: 74170; 74178; Q9967

== ENCOUNTER → 2023-03-06 14:59 | Outpatient (BNVA) | payer MEDICAID, SELFPAY | PROVIDERS: PCP General Practice; Visit Provider Nurse Practitioner | DX: I10 Essential (primary) hypertension (principal); F41.9 Anxiety disorder, unspecified; F32.A Depression, unspecified; E11.65 Type 2 diabetes mellitus with hyperglycemia; Z79.4 Long term (current) use of insulin; K21.9 Gastro-esophageal reflux disease without esophagitis; E27.8 Other specified disorders of adrenal gland | CPT/HCPCS: 80053; 80061; 81003; 82043; 83036; 84443; 87077; 87086; 87184 ==

== ENCOUNTER → 2023-05-29 14:46 | Outpatient (BNVA) | payer MEDICAID, SELFPAY | PROVIDERS: PCP Nurse Practitioner; Visit Provider Nurse Practitioner | DX: I10 Essential (primary) hypertension (principal); F41.9 Anxiety disorder, unspecified; F32.A Depression, unspecified; K21.9 Gastro-esophageal reflux disease without esophagitis; E11.65 Type 2 diabetes mellitus with hyperglycemia; Z79.4 Long term (current) use of insulin; E11.9 Type 2 diabetes mellitus without complications | CPT/HCPCS: 80053; 83036 ==

== ENCOUNTER → 2023-10-22 15:52 | Outpatient (BNVA) | payer MEDICAID, SELFPAY | PROVIDERS: PCP Nurse Practitioner; Visit Provider Nurse Practitioner | DX: I10 Essential (primary) hypertension (principal); F41.9 Anxiety disorder, unspecified; F32.A Depression, unspecified; K21.9 Gastro-esophageal reflux disease without esophagitis; E11.65 Type 2 diabetes mellitus with hyperglycemia; Z79.4 Long term (current) use of insulin; E27.8 Other specified disorders of adrenal gland; E11.9 Type 2 diabetes mellitus without complications | CPT/HCPCS: 80053; 80061; 82607; 83036; 84443 ==

== ENCOUNTER 2023-11-26 14:54 | Outpatient (CLI) | payer MEDICAID, SELFPAY ==
--- NOTE | 2023-11-26 15:00 | MM_ITS ---
WS: [id number] BILATERAL 3D TOMOSYNTHESIS DIGITAL SCREENING MAMMOGRAPHY WITH CAD CLINICAL INFORMATION: Z12.31 - Encounter for screening mammogram for malignant ... HISTORY: Screening mammogram. No current complaints. COMPARISON: New baseline TECHNIQUE: Bilateral CC and MLO views. FINDINGS: Scattered fibroglandular densities bilaterally. No suspicious focal mass, asymmetry, calcifications, or architectural distortion. No evidence of malignancy. Vascular calcifications. A few incidental pun ctate calcifications. MM/[place] [id number] IMPRESSION: BI-RADS: 2-Benign FOLLOW UP: 1 Year Follow-up Recommend return to annual screening mammography.
== END 2023-11-26 14:55 | disposition home or self-care (01) ==
LOC: MOBLMAM 14:56
PROVIDERS: PCP Nurse Practitioner; Visit Provider Nurse Practitioner
DX: Z12.31 Encounter for screening mammogram for malignant neoplasm of breast (principal)
CPT/HCPCS: 77063; 77067

== ENCOUNTER → 2024-01-07 15:30 | Outpatient (BNVA) | payer MEDICAID, SELFPAY | PROVIDERS: PCP Nurse Practitioner; Visit Provider Nurse Practitioner | DX: I10 Essential (primary) hypertension (principal); F41.9 Anxiety disorder, unspecified; F32.A Depression, unspecified; K21.9 Gastro-esophageal reflux disease without esophagitis; E11.65 Type 2 diabetes mellitus with hyperglycemia; Z79.4 Long term (current) use of insulin; E11.9 Type 2 diabetes mellitus without complications; Z79.899 Other long term (current) drug therapy | CPT/HCPCS: 80053; 83036 ==

== ENCOUNTER → 2024-03-24 14:55 | Outpatient (BNVA) | payer MEDICAID, SELFPAY | PROVIDERS: PCP Nurse Practitioner; Visit Provider Nurse Practitioner | DX: E11.9 Type 2 diabetes mellitus without complications (principal); I10 Essential (primary) hypertension; E11.65 Type 2 diabetes mellitus with hyperglycemia; Z79.4 Long term (current) use of insulin | CPT/HCPCS: 80053; 80061; 82043; 83036; 84443 ==